=== PATIENT | male | born 1950 | race Caucasian/White ===

== ENCOUNTER 2019-10-24 09:11 | Outpatient (CLI) | payer MEDICARE, SELFPAY | END 2019-10-24 09:12 | disposition home or self-care (01) | LOC: CHSLAB 09:17 | PROVIDERS: PCP Internal Medicine; Visit Provider Specialist | DX: L72.9 Follicular cyst of the skin and subcutaneous tissue, unspecified (principal) | CPT/HCPCS: 88305 ==

== ENCOUNTER 2022-11-03 09:43 | Outpatient (CLI) | payer MEDICARE, SELFPAY | END 2022-11-03 09:44 | disposition home or self-care (01) | PROVIDERS: PCP Internal Medicine; Visit Provider Specialist | DX: L82.1 Other seborrheic keratosis (principal) | CPT/HCPCS: 88305 ==

== ENCOUNTER 2022-11-09 12:07 | Emergency (ER) | payer MEDICARE, SELFPAY ==
[2022-11-09] VITALS (10 sets, daily range): BP systolic 133–184; BP diastolic 84–99; PULSE 65–91; RESP 18–20; TEMP 36.4–37; O2SAT 95–98
--- NOTE | ~2022-11-09 | CT_ITS ---
EXAMINATION: CT soft tissue neck wo con DATE: 11/09/2022 13:45 INDICATION: Stridor. TECHNIQUE: Computed tomography (CT) of the neck was performed without intravenous contrast. Automated exposure control and iterative reconstruction technique were employed. The dose-length product was 4 62.92 mGy-cm. COMPARISON: None FINDINGS: A calcified right lung nodule is consistent with old granulomatous disease. There is a 12 x 13 mm left submandibular node. There is no radiopaque foreign body. The pharynx and larynx are unrem arkable. There is severe cervical spondylosis. IMPRESSION: 1. Mildly enlarged left submandibular lymph node, likely reactive. Reviewed, dictated and finalized at location A.
--- NOTE | ~2022-11-09 | CT_ITS ---
EXAMINATION: CT chest abdomen wo con DATE: 11/09/2022 12:45 INDICATION: Foreign body ingestion. Cough and shortness of breath. Stridor. TECHNIQUE: Computed tomography (CT) of the chest and abdomen was performed without intravenous contra st. Automated exposure control and iterative reconstruction technique were employed. The dose-length product was 687.68 mGy-cm. COMPARISON: None FINDINGS: CHEST CT: Calcified right lung nodules and calcified right hilar lymph nodes are consistent with old granulomat ous disease. There is minimal atelectasis bilaterally. No pleural effusion. The heart size is normal. No pericardial effusion. There is a small volume of food in the esophagus. There is mild thoracic s pondylosis. ABDOMEN CT: There is diffuse hepatic steatosis. There is a gallstone in the gallbladder, which is normal in size. Calcifications in the spleen are consistent with old granulomatous disease. The pancreas and adrenal glands are normal. There are cysts in the kidneys measuring up to 3.9 cm on the left. There are no d ilated loops of bowel. There is mild aortic atherosclerosis. There are no pathologically enlarged lym ph nodes. There is no free intraperitoneal fluid. There is moderate lumbar spondylosis. IMPRESSION: 1. Small volume of food in the esophagus. Reviewed, dictated and finalized at location A.
--- NOTE | ~2022-11-09 | XR_ITS ---
EXAMINATION: XR chest 1V portable INDICATION: Shortness of breath TECHNIQUE: Portable AP chest at 1213 hours COMPARISON: 08/07/2011 FINDINGS: The lungs are free of acute opacities. No pleural effusion or pneumothorax. A calcified nod ule of the right lung apex is consistent with old granulomatous disease. IMPRESSION: 1. No acute cardiopulmonary abnormality. Reviewed, dictated and finalized at location B.
--- NOTE | 2022-11-09 12:09 | ECG_ITS ---
Measurements Intervals [place] Rate: 86 P: 23 MT: 168 QRS: -3 QRSD: 92 T: 30 QT: 378 QTc: 453 Interpretive Statements SINUS RHYTHM NONSPECIFIC ST & T-WAVE ABNORMALITY ABNORMAL EKG NO PREVIOUS ECG AVAILABLE FOR COMPARISON Electronically Signed On 11-10-2022 14:26:42 CDT by Esteban Ramirez M.D.
--- NOTE | 2022-11-09 12:10 | ED.GENADULT ---
HPI - General Adult General Chief complaint: Shortness of Breath/Dyspnea Stated complaint: SOB Time Seen by Provider: 11/09/22 12:09 History of Present Illness HPI narrative: Marcin is a 71M with a PMH of GERD, laryngeal cancer s/p radiation treatment that was brought into the ED via EMS for dyspnea. He started struggling to breath about an hour ago while eating. However the thought he spit it out. Further history is difficult d/t respiratory distress. Related Data Home Medications Medication Instructions Recorded Confirmed doxazosin 4 mg tablet 4 mg PO DAILY 11/09/22 11/09/22 metoprolol succinate 100 mg 100 mg PO DAILY 11/09/22 11/09/22 tablet,extended release 24 hr olmesartan 40 mg tablet 40 mg PO DAILY 11/09/22 11/09/22 Allergies Allergy/AdvReac Type Severity Reaction Status Date / Time No Known Drug Allergies Allergy Unknown Unknown Verified 11/09/22 12:21 Bumble Bee Allergy Intermediate HIVES Uncoded 11/09/22 12:21 Review of Systems Review of Systems: All systems reviewed & are unremarkable except as noted in HPI and below Exam Const: General: ill appearing (ins severe distress ) acutely Nutritional Appearance: well nourished Orientation/consciousness: patient oriented x3 HENMT: Head: normal to inspection Ears: external ears normal Face and sinus: normal facial exam Eyes: Conjunctivae: conjunctivae normal Pupils: Equal, round and reactive pupils present Neck: Neck: normal visual inspection Chest: Chest palpation & inspection: normal inspection of the chest Resp: Effort & Inspection: labored, retractions, tachypneic and uses accessory muscles Other: Severe inspiratory strider, decreased breath sounds on the right Cardio: Rate: regular rate Rhythm: regular rhythm GI: Inspection: non-distended GI Palp: Yes Soft to palpation, No Tenderness to palpation present (GI) and No Guarding due to palpation present (GI) Skin: General skin exam: normal color Rashes: no rashes Neuro: General: patient oriented x3 and moves all extremities Cranial nerves: Yes Nystagmus not present Extrem: General: normal to inspection Psych: Mental Status: mental status grossly normal Course Course Emergency Course: Ordered CXR, EKG and labs EKG showed NSR with a rate of 86, rhythm, possible LAD but no ST elevation/depression EXAMINATION: XR chest 1V portable INDICATION: Shortness of breath TECHNIQUE: Portable AP chest at 1213 hours COMPARISON: 08/07/2011 FINDINGS: The lungs are free of acute opacities. No pleural effusion or pneumothorax. A calcified nodule of the right lung apex is consistent with old granulomatous disease. IMPRESSION: 1. No acute cardiopulmonary abnormality. EXAMINATION: CT chest abdomen wo con DATE: 11/09/2022 12:45 INDICATION: Foreign body ingestion. Cough and shortness of breath. Stridor. TECHNIQUE: Computed tomography (CT) of the chest and abdomen was performed without intravenous contrast. Automated exposure control and iterative reconstruction technique were employed. The dose-length product was 687.68 mGy-cm. COMPARISON: None FINDINGS: CHEST CT: Calcified right lung nodules and calcified right hilar lymph nodes are consistent with old granulomatous disease. There is minimal atelectasis bilaterally. No pleural effusion. The heart size is normal. No pericardial effusion.? There is a small volume of food in the esophagus. There is mild thoracic spondylosis. ABDOMEN CT: There is diffuse hepatic steatosis. There is a gallstone in the gallbladder, which is normal in size. Calcifications in the spleen are consistent with old granulomatous disease. The pancreas and adrenal glands are normal. There are cysts in the kidneys measuring up to 3.9 cm on the left. There are no dilated loops of bowel. There is mild aortic atherosclerosis. There are no pathologically enlarged lymph nodes. There is no free intraperitoneal fluid. There is moderate lumbar spondylosis. IMPRESSION: 1. Small volume of food in the esoph
[2022-11-09 12:34] LABS: Base Excess ABG 4.5 mmol/L (0-2); Basophils Absolute Auto 0.03 K/mm3 (0.00-0.10); Basophils Percent Auto 0.6 % (0.0-1.0); Device ROOM AIR; Eosinophils Absolute Auto 0.04 K/mm3 (0.02-0.50); Eosinophils Percent Auto 0.8 % (1.0-6.0); HCO3 ABG 28.5 mmol/L (23-29); Hematocrit 41.4 % (37.0-46.0); Hemoglobin 13.2 g/dL (12.4-15.3); Immature Granulocyte Absolute 0.02 K/mm3 (0.00-0.00); Immature Granulocyte Percent A 0.4 % (0.0-0.0); Lymphocytes Absolute Auto 1.06 K/mm3 (1.10-4.50); Mean Corpuscular HGB Conc 31.9 g/dL (32.0-36.0); Mean Corpuscular Hemoglobin 28.3 pg (27.0-31.0); Mean Corpuscular Volume 88.7 fL (78.0-102.0); Mean Platelet Volume 9.4 fl (8.7-11.0); Modified Allen's Test Pass; Monocytes Absolute Auto 0.44 K/mm3 (0.10-0.90); Monocytes Percent Auto 8.7 % (2.0-11.0); Neutrophils Absolute Auto 3.5 K/mm3 (1.7-7.2); Neutrophils Percent Auto 68.5 % (50.0-70.0); Oxygen Saturation ABG 96.3 % (95-97); Oxyhemoglobin 95.5 % (94-100); PCO2 ABG 40.2 mmHg (35-45); PO2 ABG 86.7 mmHg (75-85); Platelet Count Result 230 K/mm3 (150-420); Red Blood Count 4.67 M/mm3 (4.70-6.10); Red Cell Distribution Width 12.5 % (11.6-14.4); Site Drawn RIGHT RADIAL; Total Hemoglobin 14.1 g/dL (12.0-18.0); White Blood Count 5.1 K/mm3 (4.8-10.8); pH ABG 7.47 (7.35-7.45)
[2022-11-09 12:58] LABS: Alanine Aminotransferase 49 U/L (16-63); Albumin Level 3.5 g/dL (3.4-5.0); Alkaline Phosphatase 57 U/L (46-116); Anion Gap 10 mmol/L (8-16); Aspartate Amino Transferase 21 U/L (15-37); Bilirubin,Total 0.4 mg/dL (0.00-1.00); Blood Urea Nitrogen 21 mg/dL (7-18); Calcium 9.4 mg/dL (8.5-10.1); Carbon Dioxide 32 mmol/L (21-32); Chloride 103 mmol/L (98-108); Estimated CRCL calculation 57 ml/min; Estimated Glomerular Filt Rate > 60; Glucose 128 mg/dL (70-99); NT Pro B Type Natriuretic Pept 122 pg/mL (0-125); Osmolality Calculated 305 mOsm/kg (285-295); Potassium 3.2 mmol/L (3.5-5.1); Sodium 145 mmol/L (136-145); Total Protein 7.5 g/dL (6.4-8.2); Troponin I 11.9 ng/L (0.00-60.4)
[2022-11-09 13:10] LABS: Influenza A QL RT-PCR Negative (Negative); Influenza B QL RT-PCR Negative (Negative); SARS-CoV-2 RNA PCR Negative (Negative)
[2022-11-09 13:11] LABS: RSV RNA, RT-PCR Negative (Negative)
[2022-11-09] MEDS: methylPREDNISolone SOD SUCC 125 MG VIAL IV PUSH (13:35)
== END 2022-11-09 15:00 | disposition short-term general hospital (02) ==
PROVIDERS: Emergency Provider Family Medicine
DX: R06.1 Stridor (principal); R06.00 Dyspnea, unspecified; Z85.21 Personal history of malignant neoplasm of larynx; Z20.822 Contact with and (suspected) exposure to COVID-19
CPT/HCPCS: 36415; 36600; 70490; 71045; 71250; 74150; 80053; 82805; 83605; 83735; 83880; 84484; 85025; 87637; 93005; 94640; 96374; 99284; J2930

== ENCOUNTER 2022-11-09 15:32 | Emergency (ER) | payer MEDICARE, SELFPAY ==
[2022-11-09 15:32] VITALS: PULSE 70; RESP 17; TEMP 36.5; O2SAT 97
--- NOTE | 2022-11-09 15:46 | ED.SOB ---
HPI - SOB/Dyspnea General Chief Complaint: Shortness of Breath/Dyspnea Stated Complaint: dyspnea/ stridor/ ent Time Seen by Provider: 11/09/22 15:40 History of Present Illness HPI Narrative: Patient is a 71-year-old male who presents ER with concerns for stridor. Apparently patient was eating a fried sausage sandwich and began to choke and cough. Since then he has had difficulty breathing has had inspiratory stridor according to the outside ER physician. It has improved since receiving Solu-Medrol at the outside hospital. Patient is tolerating oral secretions. Reports she has felt some shortness of breath over the last week as well as some sinus congestion and cough. Patient has history of laryngeal cancer and received 28 treatments of radiation to his neck in 2000. Outside imaging showed a reactive submandibular lymph node but no other acute issue with airway. ENT physician Dr. Christina recommended patient be transferred to this hospital for further evaluation Related Data Home Medications Medication Instructions Recorded Confirmed doxazosin 4 mg tablet 4 mg PO DAILY 11/09/22 11/09/22 metoprolol succinate 100 mg 100 mg PO DAILY 11/09/22 11/09/22 tablet,extended release 24 hr olmesartan 40 mg tablet 40 mg PO DAILY 11/09/22 11/09/22 Allergies Allergy/AdvReac Type Severity Reaction Status Date / Time No Known Drug Allergies Allergy Unknown Unknown Verified 11/09/22 12:21 Bumble Bee Allergy Intermediate HIVES Uncoded 11/09/22 15:38 Review of Systems Review of Systems: All systems reviewed & are unremarkable except as noted in HPI and below Constitutional: Constitutional: Denies chills, Denies fatigue and Denies fever(s) ENT: Reports dysphagia, Denies nasal congestion and Denies sore throat Cardiovascular: Cardiovascular: Denies chest pain and Denies rapid heart rate Respiratory: Respiratory: Denies cough and Reports dyspnea Comments: stridor Gastrointestinal: Gastrointestinal: Denies abdominal pain, Denies nausea and Denies vomiting PMFSH Past Medical History Medical History (Updated 11/09/22 @ 19:37 by Hakeem Mcknight MD) Depression History of laryngeal cancer Surgical History Surgical History (Updated 11/09/22 @ 19:37 by Hakeem Mcknight MD) H/O colonoscopy History of carpal tunnel release Exam Narrative: GENERAL: Well-appearing, well-nourished, and in no acute distress. HEAD: Normocephalic, atraumatic. ENT: Mucous membranes moist. Normal-appearing posterior oropharynx. Neck: Supple, no bruit, no edema. CHEST: Clear to auscultation. No respiratory distress. HEART: Regular rate and rhythm. Normal peripheral pulses. EXTREMITIES: Normal range of motion. No edema. SKIN: Warm, dry, no rash. NEURO: Alert and oriented x3. PSYCH: Normal mood and affect. Course Course Emergency Course: ENT has been to the patient's bedside and performed a direct visual exam of the larynx and vocal cords. He reports there is some narrowing related to radiation that patient has had in the past. He is given the patient and the clinic information for [facility] so he can have a dilation performed. He recommends an oral Medrol Dosepak for home. Patient verbalized understanding of treatment plan and are comfortable. Vital Signs Vital signs: Vital Signs Temperature 97.7 F 11/09/22 15:32 Pulse Rate 70 11/09/22 15:32 Respiratory Rate 17 11/09/22 15:32 Pulse Oximetry 97 11/09/22 15:32 Oxygen Delivery Room Air 11/09/22 15:32 Temperature 97.7 F 11/09/22 15:32 Pulse Rate 70 11/09/22 15:32 Respiratory Rate 17 11/09/22 15:32 Blood Pressure 150/90 H 11/09/22 18:07 Pulse Oximetry 97 11/09/22 18:07 Oxygen Delivery Room Air 11/09/22 15:32 Discharge Plan Discharge Clinical Impression: Laryngeal stenosis Patient Disposition: Home, Self-Care Condition: Stable Additional Instructions: The ENT reports that you have narrowing of your vocal cords
--- NOTE | 2022-11-09 17:54 | WPDPROCEDUR ---
Procedures Laryngoscopy Laryngoscopy Comments: All consents obtained nasal airway anesthetized with Afrin lidocaine. Airway anesthetized with let topical lidocaine. Patient tolerated this well flexible laryngoscope passed. Nasal exam body pharynx normal larynx not normal there is no masses no lesions no ulcerations over the bilateral vocal cords are thickened and fixed in a more median position. Distal to them is normal. Patient tolerated the procedure well no obvious recurrence however there is vocal cord fixation.
--- NOTE | 2022-11-09 17:55 | WPDCN ---
Assessment and Plan Assessment and plan (1) Laryngeal stenosis: Code(s): J38.6 - Stenosis of larynx Status: Acute Assessment and Plan: scope shows vocal cord fixation in a more median position. Cords were slightly edematous thickened as well. Airway seems stable out discharge on least a Medrol Dosepak follow-up recommended Jermaine Anderson for laryngeal dilation. patient voiced understanding and agreed. He is intubatable. HPI Data of Consult Date/Time: 11/09/22 17:55 Primary Care Provider: UNKNOWN,DOCTOR Consult Narrative Narrative: Marcin Medeiros is a 71 year old male History laryngeal cancer treated with he reports 18 excuse me 28 treatments of XRT approximately 21 years ago. Presents for further evaluation treatment to the ER. Episode of eating became stridulous coughed choked. ENT consult for further evaluation treatment. Per outside hospital CT is fairly normal. Review of Systems Review of Systems: All systems reviewed & are unremarkable except as noted in HPI and below Meds Home Medications and Allergies Home Medications Medication Instructions Recorded Confirmed Type doxazosin 4 mg tablet 4 mg PO DAILY 11/09/22 11/09/22 History methylprednisolone 4 mg tablets in See Rx Instructions PO .COMPLEX 11/09/22 Rx a dose pack (Methylpred DP) #21 ea metoprolol succinate 100 mg 100 mg PO DAILY 11/09/22 11/09/22 History tablet,extended release 24 hr olmesartan 40 mg tablet 40 mg PO DAILY 11/09/22 11/09/22 History Allergies Allergy/AdvReac Type Severity Reaction Status Date / Time No Known Drug Allergies Allergy Unknown Unknown Verified 11/09/22 12:21 Bumble Bee Allergy Intermediate HIVES Uncoded 11/09/22 15:38 Vital Signs Vital Signs - 24 hr 11/09/22 15:32 Temperature 36.5 C Pulse Rate 70 Respiratory Rate 17 Pulse Oximetry 97 Oxygen Delivery Room Air Exam Narrative: Normal ENT exam see procedure note mild stridor the neil
[2022-11-09 18:07] VITALS: BP 150/90; O2SAT 97
== END 2022-11-09 18:08 | disposition home or self-care (01) ==
PROVIDERS: Emergency Provider Emergency Medicine
DX: J38.6 Stenosis of larynx (principal); F32.A Depression, unspecified; Z85.21 Personal history of malignant neoplasm of larynx
CPT/HCPCS: 31575; 99283

== ENCOUNTER 2024-07-07 08:50 | Outpatient (CLI) | payer MEDICARE, SELFPAY ==
[2024-07-07 09:21] LABS: Basophils Absolute Auto 0.02 K/mm3 (0.00-0.10); Basophils Percent Auto 0.3 % (0.0-1.0); Eosinophils Absolute Auto 0.04 K/mm3 (0.02-0.50); Eosinophils Percent Auto 0.7 % (1.0-6.0); Hematocrit 42.1 % (37.0-46.0); Hemoglobin 13.9 g/dL (12.4-15.3); Immature Granulocyte Absolute 0.05 K/mm3 (0.00-0.00); Immature Granulocyte Percent A 0.8 % (0.0-0.0); Lymphocytes Absolute Auto 1.59 K/mm3 (1.10-4.50); Lymphocytes Percent Auto 26.5 % (18.0-42.0); Mean Corpuscular Hemoglobin 28.3 pg (27.0-31.0); Mean Corpuscular Volume 85.6 fL (78.0-102.0); Mean Platelet Volume 10.4 fl (8.7-11.0); Monocytes Absolute Auto 0.43 K/mm3 (0.10-0.90); Monocytes Percent Auto 7.2 % (2.0-11.0); Neutrophils Absolute Auto 3.88 K/mm3 (1.70-7.20); Neutrophils Percent Auto 64.5 % (50.0-70.0); Platelet Count Result 158 K/mm3 (150-420); Red Blood Count 4.92 M/mm3 (4.70-6.10); Red Cell Distribution Width 12.6 % (11.6-14.4)
[2024-07-07 09:54] LABS: Alanine Aminotransferase 39 U/L (16-63); Alkaline Phosphatase 56 U/L (46-116); Anion Gap 8 mmol/L (4-12); Aspartate Amino Transferase 15 U/L (15-37); Bilirubin,Total 0.6 mg/dL (0.00-1.00); Blood Urea Nitrogen 21 mg/dL (7-18); Calcium 9.3 mg/dL (8.5-10.1); Carbon Dioxide 30 mmol/L (21-32); Chloride 103 mmol/L (98-108); Cholesterol 153 mg/dL (0-200); Estimated Glomerular Filt Rate > 60; Glucose 93 mg/dL (70-99); HDL Direct 53 mg/dL (40-60); LDL Cholesterol Calculated 76 mg/dL (<130); Osmolality Calculated 295 mOsm/kg (285-295); Potassium 4.2 mmol/L (3.5-5.1); Sodium 141 mmol/L (136-145); Total Protein 7.1 g/dL (6.4-8.2); Triglycerides 120 mg/dL (0-150)
[2024-07-07 10:05] LABS: Thyroid Stimulating Hormone Reflex 3.15 u/IU/mL (0.36-3.74)
== END 2024-07-07 08:51 | disposition home or self-care (01) ==
LOC: CHSLAB 08:52
PROVIDERS: PCP Family Medicine; Visit Provider Family Medicine
DX: E03.9 Hypothyroidism, unspecified (principal); I10 Essential (primary) hypertension
CPT/HCPCS: 36415; 80053; 80061; 84443; 85025

== ENCOUNTER 2024-07-27 13:20 | Outpatient (CLI) | payer MEDICARE, SELFPAY ==
--- NOTE | 2024-07-27 13:05 | ECHO_ITS ---
Patient Info Name: Marcin Medeiros Age: 73 years : 1950 Gender: Male Ht: 70 in Wt: 210 lbs BSA: 2.19 m2 HR: 69 bpm BP: 116 / 62 mmHg Heart Rhythm: Sinus Rhythm Technical Quality: Good Exam Date: 07/27/2024 2:15 PM Exam Location: Echo Lab Patient Status: Outpatient Admit Date: 07/27/2024 Staff Ordering Physician: Demetrius De Paz DO Patient Portal Representative: Araceli Jiménez RDCS Attending Provider: Demetrius De Paz DO Referring Physician: Baldev GRAY; Exam Type: CA echo doppler color flow Study Info Complete two-dimensional, color flow and Doppler transthoracic echocardiogram is performed. Summary 1. Complete two-dimensional, color flow and Doppler transthoracic echocardiogram is performed. 2. Left ventricular chamber dimension is normal. 3. Left ventricular systolic function is normal, estimated at 60-65%. 4. The left ventricular diastolic function is grade I diastolic dysfunction. 5. E/e' 11 is mildly elevated. 6. Left atrial chamber dimension is moderately enlarged. 7. There is mild aortic valve sclerosis. 8. There is mild aortic valve regurgitation. 9. There is trace mitral valve regurgitation. 10. There is trace pulmonic regurgitation. Left Ventricle E/e' 11 is mildly elevated. Left ventricular chamber dimension is normal. Left ventricular systolic function is normal, estimated at 60-65%. The left ventricular diastolic function is grade I diastolic dysfunction. Right Ventricle Right ventricular systolic function is normal at 3.1 cm. Right ventricular chamber dimension is normal. Left Atria Left atrial chamber dimension is moderately enlarged. Right Atria Right atrial chamber dimension is normal. Aortic Valve The aortic valve is trileaflet. There is mild aortic valve sclerosis. There is no aortic valve stenosis. There is mild aortic valve regurgitation. Pulmonic Valve There is trace pulmonic regurgitation. Mitral Valve There is no mitral valve stenosis. There is trace mitral valve regurgitation. Tricuspid Valve There is no tricuspid valve regurgitation. Pericardium/Pleural There is no pericardial effusion. Inferior Vena Cava Normal inferior vena cava with >50% collapse upon inspiration consistent with normal right atrial pressure, 5 mmHg. Aorta The aortic root size at the sinus of Valsalva is normal. Left Ventricular Outflow Tract Name Value Normal LVOT 2D LVOT Diameter 2.3 cm LVOT Doppler LVOT Peak Velocity 133 cm/s LVOT Peak Gradient 6 mmHg LVOT Mean Gradient 3 mmHg LVOT VTI 28 cm LVOT VTI/AV VTI Ratio 0.8 LVOT Stroke Volume 115 ml Pulmonic Valve Name Value Normal PV Doppler PV Peak Velocity 123 cm/s PV Peak Gradient 6 mmHg PV Regurgitation Doppler AR Peak End Diastolic Velocity 99 cm/s Mitral Valve Name Value Normal MV Doppler MV Peak Gradient 6 mmHg MV Mean Gradient 2 mmHg MV Decel Carbon 342 cm/s2 MV PHT 52 ms MV Area (PHT) 4.2 cm2 4.0-5.0 MV Area (Cont Eq VTI) 2.8 cm2 MV Diastolic Function MV E Peak Velocity 62 cm/s MV A Peak Velocity 98 cm/s MV E/A 0.6 MV Decel Time 180 ms Tricuspid Valve Name Value Normal Estimated PAP/RSVP RA Pressure 5 mmHg <=5 Aortic Valve Name Value Normal AV Doppler AV Peak Velocity 149 cm/s AV Peak Gradient 9 mmHg AV Mean Gradient 5 mmHg AV VTI 35 cm AV Area (Cont Eq VTI) 3.3 cm2 >=3.0 AV Area (Cont Eq Miki) 3.6 cm2 AV V1/V2 Ratio 0.89 AV Regurgitation 2D LVOT Area 4.1 cm2 AV Regurgitation Doppler AR Decel Time 3,431 ms AR Decel Carbon 128 cm/s2 AR PHT 995 ms Ventricles Name Value Normal LV Dimensions 2D/MM IVS Diastolic Thickness (2D) 0.8 cm 0.6-1.0 LVID Diastole (2D) 5.7 cm 4.2-5.8 LVIW Diastolic Thickness (2D) 0.8 cm 0.6-1.0 LVID Systole (2D) 3.8 cm 2.5-4.0 LVOT Diameter 2.3 cm LV Mass (2D Cubed) 174.89 g 88.00-224.00 LV Mass Index (2D Cubed) 80 g/m2 49-115 Relative Wall Thickness (2D) 0.28 LV Fractional Shortening/Ejection Fraction 2D/MM LV Fractional Shortening (2D) 33 % 25-43 LV EF (2D Teicholz) 61 % 52-72 LV Diastolic Volume (4C MOD) 166 ml LV EF (4C MOD) 68 % LV Diastolic Length (4C) 8.8 cm LV Systolic Length (4C) 7.5 cm LV Stroke Volume (4C MOD) 114 ml Atria Name Value Normal LA Dimensions LA Volume (4C A-L) 61 ml RA Dimensions RA Area (4C) 16.0 cm2 <=18.0 Report Signatures
== END 2024-07-27 13:21 | disposition home or self-care (01) ==
PROVIDERS: PCP Family Medicine; Visit Provider Family Medicine
DX: I50.9 Heart failure, unspecified (principal); I10 Essential (primary) hypertension; I35.1 Nonrheumatic aortic (valve) insufficiency; I35.8 Other nonrheumatic aortic valve disorders
CPT/HCPCS: 93306

== ENCOUNTER 2024-07-28 07:22 | Outpatient (CLI) | payer MEDICARE, SELFPAY ==
--- NOTE | ~2024-07-28 | US_ITS ---
EXAMINATION: US retroperitoneal duplex ltd DATE: 07/28/2024 08:10 ICT SUPPORT ENGINEER INDICATION: Essential hypertension TECHNIQUE: Sonographic imaging of the kidneys was performed with a 3.5 MHz transducer. Retroperitone al duplex sonogram of the renal arteries also obtained. FINDINGS: No focal flow abnormalities are seen in the renal arteries on color Doppler. The peak syst olic velocity ranges of the right and left renal arteries and aorta are 84 cm per second, 71 cm per s econd, and 83 cm per second, respectively. The velocities and renal to aortic ratios are within francisca l limits. Incidental note is made of a left renal cyst measuring 4.4 cm. IMPRESSION: 1. No Doppler evidence of renal artery stenosis. Reviewed, dictated and finalized at location B. SUPPORT ENGINEER
== END 2024-07-28 07:23 | disposition home or self-care (01) ==
LOC: CHSIMG 07:23
PROVIDERS: PCP Family Medicine; Visit Provider Family Medicine
DX: I10 Essential (primary) hypertension (principal)
CPT/HCPCS: 93976

== ENCOUNTER 2025-03-27 09:01 | Outpatient (CLI) | payer MEDICARE, SELFPAY ==
[2025-03-27 09:20] LABS: Hematocrit 39.5 % (37.0-46.0); Hemoglobin 12.7 g/dL (12.4-15.3); Immature Granulocyte Percent A 0.7 % (0.0-0.0); Lymphocytes Absolute Auto 1.26 K/mm3 (1.10-4.50); Mean Corpuscular HGB Conc 32.2 g/dL (32-36); Mean Corpuscular Hemoglobin 28.7 pg (27.0-31.0); Mean Corpuscular Volume 89.4 fL (78.0-102.0); Nucleated Red Blood Cells Absolute Auto 0.00 K/mm3 (0.00-0.00); Nucleated Red Blood Cells Perc 0.0 % (0-0.0); Platelet Count Result 169 K/mm3 (150-420); Red Blood Count 4.42 M/mm3 (4.70-6.10); White Blood Count 4.3 K/mm3 (4.8-10.8)
--- OUTSIDE RECORDS SUMMARY | 2025-03-27 09:46 | XMS_ITS | Encounter Summary ---
Author Organization [facility] Address [address] [place] [address] Phone Care Team Providers Care Database Consultant Name Role Phone Momo Moore MD Primary Care Provider [phone] MaryseaaronAmarjit DO Unavailable [phone] Gumaro Dumont MD Unavailable [phone] Reason for Visit * Reason Comments Medication Refill Encounter Details Date Type Department Care Team (Late st Contact Info) Description 11/22/2021 Refill [facility] - Primary Care - [place] [address] [place] [address] Momo Moore MD [address] [place] [address] Medication Refill Social History Tobacco Use Types Packs/Day Years Used Date Smoking Tobacco: Former Cigarettes 1 4 0 07/27/1966 - 07/27/1970 Smokeless Tobacco: Never Alcohol Use Standard Drinks/Week Comments Yes 0 (1 standard drink = 0.6 oz pur e alcohol) rarely PHQ-2 Answer Date Recorded Total Score - Questions 1-9 0 02/16 Sex and Gender Information Value Date Recorded Sex Assigned at Not on file Legal Sex Male 11:49 PM CDT Gender Identity Not on file Sexual Orientation Not on file Occupation Industry Job Start Date Job End Date retired from [employer] Not on file Not on file Not on file documented as of this encounter Miscellaneous Notes * Telephone Encounter - Viktoriya Mendoza RN - 11/24/2021 8:31 AM CDT Refill request too soon. documented in this encounter Plan of Treatment Not on file documented as of this encounter Visit Diagnoses Diagnosis Hypertension, essential Unspecified essential hypertension documented in this encounter Additional Health Concerns Assessment Noted Time PHQ-9 Depression Total Score: 0 03/05/20 8:00 AM CDT documented as of this encounter Care Teams Database Consultant Relationship Specialty Start Date End Date Momo Moore MD [address] [place] [address] PCP - General Internal Medicine 04/13/15 Amarjit Esparza DO [address] [place] [address] Consulting Physician Gastroenterology 02/26/16 03/30/24 Gumaro Dumont MD [address] [facility] [address] [place] [address] Consulting Physician Orthopaedic Surgery 03/31/24 documented as of this encounter
--- OUTSIDE RECORDS SUMMARY | 2025-03-27 09:46 | XMS_ITS | Encounter Summary ---
Author Organization [facility] Address [address] [place] [address] Phone Care Team Providers Care Furniture Detailer Name Role Phone Momo Moore MD Primary Care Provider [phone] Amarjit Esparza DO Unavailable [phone] Gumaro Dumont MD Unavailable [phone] Reason for Visit * Reason Comments Medication Refill Encounter Details Date Type Department Care Team (Late st Contact Info) Description 10/15/2023 Refill [facility] - Primary Care - [place] [address] [place] [address] Momo Moore MD [address] [place] [address] Medication Refill Social History Tobacco Use Types Packs/Day Years Used Date Smoking Tobacco: Former Cigarettes 1 4 0 07/27/1966 - 07/27/1970 Smokeless Tobacco: Never Alcohol Use Standard Drinks/Week Comments Yes 0 (1 standard drink = 0.6 oz pur e alcohol) rarely PHQ-2 Answer Date Recorded Total Score - Questions 1-9 0 02/17 Education Answer Date Recorded What is the highest level of school you have completed or the highest degree you have received? Associate degree: occupational, technical, or vocational program 03/10/2022 Sex and Gender Information Value Date Recorded Sex Assigned at Not on file Legal Sex Male 11:49 PM CDT Gender Identity Not on file Sexual Orientation Not on file Occupation Industry Job Start Date Job End Date retired from [employer] Not on file Not on file Not on file documented as of this encounter Miscellaneous Notes * Telephone Encounter - Gwendolyn Ruiz RN - 10/15/2023 8:43 AM CDT Medication(s) refilled and signed per [facility] Chronic Medication Refill Standing Order for Pediatricand Adult Patients. Requested Prescriptions Pending Prescriptions Disp Refills metoprolol Succinate (TOPROL-XL) 100 MG TABLET SR 24 HR [Pharmacy Med Name: METOPROLOL SUCC ER 100 MG TAB] 90 Tablet 1 Sig: TAKE 1 TABLET BY MOUTH EVERY DAY Beta-Blockers Protocol Passed - 10/15/2023 1:07 AM Passed - BP on record in the past year Clinician-entered: BP Readings from Last 3 Encounters: 06/29/23 132/76 05/12/23 103/81 03/29/23 110/70 Patient-entered: No data recorded Passed - Visit with relevant provider in past 12 months or upcoming 90 days Recent Visits Date Type Provider Dept 03/29/23 Office Visit Momo Moore MD [facility] Showing recent visits within past 365 days and meeting all other requirements Future Appointments No visits were found meeting these conditions. Showing future appointments within next 90 days and meeting all other requirements documented in this encounter Plan of Treatment Not on file documented as of this encounter Visit Diagnoses Diagnosis Hypertension, essential Unspecified essential hypertension documented in this encounter Additional Health Concerns Assessment Noted Time PHQ-9 Depression Total Score: 0 03/05/20 21 8:00 AM CDT documented as of this encounter Care Teams Furniture Detailer Relationship Specialty Start Date End Date Momo Moore MD [address] [place] [address] PCP - General Internal Medicine 04/13/15 Amarjit Esparza DO [address] [place] [address] Consulting Physician Gastroenterology 02/26/16 03/30/24 Gumaro Dumont MD [address] [facility] [address] [place] [address] Consulting Physician Orthopaedic Surgery 03/31/24 documented as of this encounter
--- OUTSIDE RECORDS SUMMARY | 2025-03-27 09:46 | XMS_ITS | Encounter Summary ---
Author Organization [facility] Address [address] [place] [address] Phone Care Team Providers Care Repairer Welding [employer] Equipment Name Role Phone Momo Moore MD Primary Care Provider [phone] Amarjit Esparza DO Unavailable [phone] Gumaro Dumont MD Unavailable [phone] Reason for Visit * Reason Comments Medication Refill Encounter Details Date Type Department Care Team (Late st Contact Info) Description 10/16/2023 Refill [facility] - Primary Care - [place] [address] [place] [address] Momo Moore MD [address] [place] [address] Medication Refill Social History Tobacco [...] Start Date Job End Date retired from [employer] Not on file Not on file Not on file documented as of this encounter Miscellaneous Notes * Telephone Encounter - Kristian Randall RN - 10/18/2023 2:09 PM CDT Medication(s) refilled and signed per [facility] Chronic Medication Refill Standing Order for Pediatricand Adult Patients. Requested Prescriptions Pending Prescriptions Disp Refills Olmesartan Medoxomil 40 MG Tablet [Pharmacy Med Name: OLMESARTAN MEDOXOMIL 40 MG TAB] 90 Tablet 1 Sig: TAKE 1 TABLET BY MOUTH EVERY DAY ARB Protocol Passed - 10/16/2023 7:25 AM Passed - Serum potassium on record in past 12 months POTASSIUM Date Value Ref Range Status 02/25/2023 3.7 3.5 - 5.1 mmol/L Final Passed - BP on record in the past year Clinician-entered: BP Readings from Last 3 Encounters: 06/29/23 132/76 05/12/23 103/81 03/29/23 110/70 Patient-entered: No data recorded Passed - Visit with relevant provider in past year or upcoming 90 days Recent Visits Date Type Provider Dept 03/29/23 Office Visit Momo Moore MD [facility] Showing recent visits within past 365 days and meeting all other requirements Future Appointments No visits were found meeting these conditions. Showing future appointments within next 90 days and meeting all other requirements Passed - GFR on record in past 12 months GFR, EST. NONAFRICAN Date Value Ref Range Status 02/25/2023 >60 >=60 Final documented in this encounter Plan of Treatment Not on file documented as of this encounter Visit Diagnoses Diagnosis Hypertension, essential Unspecified essential hypertension documented in this encounter Additional Health Concerns Assessment Noted Time PHQ-9 Depression Total Score: 0 03/05/20 21 8:00 AM CDT documented as of this encounter Care Teams Repairer [employer] Relationship Specialty Start Date End Date Momo Moore MD [address] [place] [address] PCP - General Internal Medicine 04/13/15 Amarjit Esparza DO [address] [place] [address] Consulting Physician Gastroenterology 02/26/16 03/30/24 Gumaro Dumont MD [address] [place] [address] Consulting Physician Orthopaedic Surgery 03/31/24 documented as of this encounter
--- OUTSIDE RECORDS SUMMARY | 2025-03-27 09:46 | XMS_ITS | Encounter Summary ---
Author Organization [facility] Address [address] [place] [address] Phone Care Team Providers Care Project Manager Interior Design Name Role Phone Momo Moore MD Primary Care Provider [phone] MaryseaaronAmarjit DO Unavailable [phone] Gumaro Dumont MD Unavailable [phone] Reason for Visit * Reason Comments Medication Refill Encounter Details Date Type Department Care Team (Late st Contact Info) Description 02/24/2021 Refill [facility] - Primary Care - [place] [address] [place] [address] Momo Moore MD [address] [place] [address] Medication Refill Social History Tobacco Use Types Packs/Day Years Used Date Smoking Tobacco: Former Cigarettes 1 4 0 07/27/1966 - 07/27/1970 Smokeless Tobacco: Never Alcohol Use Standard Drinks/Week Comments Yes 0 (1 standard drink = 0.6 oz pur e alcohol) rarely PHQ-2 Answer Date Recorded Total Score - Questions 1-9 0 12/2019 Sex and Gender Information Value Date Recorded Sex Assigned at Not on file Legal Sex Male 11:49 PM CDT Gender Identity Not on file Sexual Orientation Not on file Occupation Industry Job Start Date Job End Date retired from [employer] Not on file Not on file Not on file documented as of this encounter Plan of Treatment Not on file documented as of this encounter Visit Diagnoses Diagnosis Hypertension, essential Unspecified essential hypertension documented in this encounter Additional Health Concerns Assessment Noted Time PHQ-9 Depression Total Score: 0 09/22/19 20 1:00 PM [employer] documented as of this encounter Care Teams Project Manager Interior Design Relationship Specialty Start Date End Date Momo Moore MD [address] [place] [address] PCP - General Internal Medicine 04/13/15 Amarjit Esparza DO [address] [place] [address] Consulting Physician Gastroenterology 02/26/16 03/30/24 Gumaor Dumont MD [address] [place] [address] Consulting Physician Orthopaedic Surgery 03/31/24 documented as of this encounter
--- OUTSIDE RECORDS SUMMARY | 2025-03-27 09:46 | XMS_ITS | Clinical Summary ---
Author Organization [facility] Address [address] [address] Phone Care Team Providers Care Enterprise Project Manager Name Role Phone Momo Moore MD Primary Care Provider [phone] Gumaro Dumont MD Unavailable [phone] Allergies Active Allergy Reactions Criticality Noted Date Comments Bee Venom Unknown 09/29/2019 Carries epipen Wasp Venom Hives Medium 06/29/2023 Medications EPINEPHrine (EPIPEN) 0.3 MG/0.3ML Solution Auto-injectorI ndications:Bee sting allergy 0.3 mL by Intramuscular route once as needed for Anaphylaxis. 0.3 mL 1 2 Active sildenafil citrate (VIAGRA) 100 MG Tablet 50 mg. 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 Vocal cord paralysis 12/24/2022 Benign essential microscopic hematuria 3 Benign prostatic hyperplasia with incomplete bladder emptying 03/03/2019 Laryngopharyngeal reflux 09/01/2016 PNAR (perennial non-allergic rhinitis) 7 Hypertrophy of inferior nasal turbinate 09/01/19 17 BPPV (benign paroxysmal positional vertigo) 07/19 Noise-induced hearing loss of both ears 08/06/19 17 Tinnitus 08/06/2016 Hypertension, essential Gastroesophageal reflux disease without esophagi tis Arthritis Irritable bowel syndrome wit h both constipation and diarrhea Bee sting allergy Immunizations Immunization Administration Dates Next Due Covid-19, Mrna, Lnp-s, Pf, 3 0 Mcg/0.3 Ml Dose (Ekinops) 02/13/2021,01/23/2021 DTAP VACCINE 01/16/2014 Influenza Vaccine greater than 3 yrs 11/2019,04/21/2019,03/25/2018,2012 Influenza, High-dose, Quadrivalent 04/11/2022 Influenza, Quadrivalent, Adjuvanted 04/19/2023,1 Influenza, Seasonal, Injecta ble, Undefined 03/25/2018,03/29/2014 Influenza, high-dose, trivalent, PF 04/18,04/09/2017,03/20/2016,2014 PUR PCV-13 02/26/2016 Pneumococcal Vaccine Adult - 23 Valent 01/16/2014 Zoster Vaccine Recombinant 06/05/2020,03/23/2020 Zoster Vaccine, live 05/18/2015,03/02/2015 Family History Medical History Relation Name Comments No Known Problems Brother Cancer Father Jacinto Lymphoma Cancer Maternal Aunt Colon Cancer Maternal Aunt Cancer Maternal Uncle Cancer Mother Gi Gleoblastoma Cancer Paternal Aunt Cancer Paternal Uncle Cancer Sister Stacy Breast cancer Relation Name Status Comments Brother Alive Father Jacinto Maternal Aunt Maternal Uncle Mother Gi Paternal Aunt Paternal Uncle Sister Stacy Social History Tobacco Use Types Packs/Day Years Used Date Smoking Tobacco: Former Cigarettes 1 4 0 07/27/1966 - 07/27/1970 Smokeless Tobacco: Never Tobacco Cessation:Counseling Given: Not Answered Alcohol Use Standard Drinks/Week Comments Yes 2 (1 standard drink = 0.6 oz pur e alcohol) rarely [facility] Utilities Answer Date Recorded In the past 12 months has e electric, gas, oil, or water company threatened to shut off services in your home? No 03/29/2024 Social Connection and Isolation Panel Answer Date Recorded Frequency of Communication w ith Friends and Family Not on file 03/29/2024 Frequency of Social Gatherin gs with Friends and Family Not on file 03/29/2024 How often do you attend [employer] [facility] or scientologist services? More than 4 times per year 03/29/2024 Do you belong to any clubs o r organizations such as jehovah's witness groups, unions, fraternal or athletic groups, or school groups? Yes 03/29/2024 How often do you attend meet ings of the clubs or organizations you belong to? Patient declined 03/29/2024 Are you , , di vorced, , never , or living with a partner? 03/29/2024 AUDIT-C Answer Date Recorded Q1: How often do you have a drink containing alc ohol? Patient declined 03/29/2024 Q2: How many drinks containi ng alcohol do you have on a typical day when you are drinking? Patient declined 03/29/2024 Q3: How often do you have si x or more drinks on one occasion? Patient declined 03/29/2024 Overall Financial Resource Strain (CARDIA) Answe r Date Recorded How hard is it for you to pa y for the very basics like food, housing, medical care, and heating? Somewhat hard 03/29/2024 PHQ-2 Answer Date Recorded Total Score - Questions 1-9 0 12/17 [facility] [place] of Occupat ional Health - Occupational Stress Questionnaire Answer Date Recorded Do you feel stress - tense, restless, nervous, or anxious, or unable to sleep at night because your mind is troubled all the time - these days? To some extent 03/29/2024 Exercise Vital Sign Answer Date Recorde d On average, how many days pe r week do you engage in moderate to strenuous exercise (like a brisk walk)? 7 days 03/29/2024 On average, how many minutes do you engage in exercise at this level? 30 min 03/29/2024 PRAPARE - Transportation Answer Date Re corded In the past 12 months, has l ack of transportation kept you from medical appointments or from getting medications? No 03/19 In the past 12 months, has l ack of transportation kept you from meetings, work, or from getting things needed for daily living? No 03/29/2024 Housing Stability Vital Sign Answer Michael e Recorded In the last 12 months, was t here a time when you were not able to pay the mortgage or rent on time? Patient declined 03/29/20 24 In the past 12 months, how m any times have you moved where you were living? 0 03/29/2024 At any time in the past 12 m [facility], were you homeless or living in a [place] health care facility (including now)? No 03/29/2024 Education Answer Date Recorded What is the highest level of school you have completed or the highest degree you have received? Associate degree: occupational, technical, or vocational program 03/10/2022 Sexually Active Control Partners Comments Yes Female Sex and Gender Information Value Date Recorded Sex Assigned at Not on file Legal Sex Male 11:49 PM CDT Gender Identity Not on file Sexual Orientation Not on file Occupation Industry Job Start Date Job End Date retired from [employer] Not on file Not on file Not on file Last Filed Vital Signs Vital Sign Reading Time Taken Comments Blood Pressure 140/70 03/31/2024 8:44 AM CDT Pulse 65 03/31/2024 8:44 AM CDT Temperature 36.1 C (97 F) 03/31/2024 8:44 AM CDT Respiratory Rate 18 03/31/2024 8:44 AM CDT Oxygen Saturation 96% 03/31/2024 8:44 AM CDT Inhaled Oxygen Concentration - - Weight 96.3 kg (212 lb 3.2 oz) 03/31/2024 8:44 A M CDT Height 177.8 cm (5' 10) 03/31/2024 8:44 AM CDT Body Mass Index 30.45 03/31/2024 8:44 AM CDT Plan of Treatment Health Maintenance Due Date Last Done Comments Respiratory Syncytial Virus (RSV) Immunization (Adult) (1 - 1-dose 75+ series) 12/20/2023 Influenza Immunization (#1) 03/19/202504/18, 04/19/2023, 04/11/2022, Additional history exists SARS-COV-2 Immunization ( season) 2025 02/13/2021, 01/23/2021 Pneumococcal Immunization (50+ years) Completed 02/26/2016, 01/16/2014 Pneumococcal Immunization Combined Discontinued 02/26/2016, 01/16/2014 Immunochemical Fecal Occult Blood Discontinued 07/22/2018 Zoster Immunization Completed 06/05/2020, 03/23/2020, 05/18/2015, Additional history exists Colonoscopy Discontinued 05/12/2023, 07/19, 12/01/2011 Colorectal Cancer Screening Discontinued Hepatitis C Virus (HCV) Screening Completed 03/31/2024 Cologuard Discontinued Hepatitis B Immunization Aged Out No longer eligible based on patient's age to complete this topic Human Papillomavirus (HPV) Immunization Aged Out No longer eligible based on patient's age to complete this topic Meningococcal Immunization (ACWY) Aged Out No longer eligible based on patient's age to complete this topic Rotavirus Immunization Aged Out No lo nger eligible based on patient's age to complete this topic Procedures Procedure Name Priority Date/Time Associated Diagnosis Comments HEPATITIS C ANTIBODY Routine 03/31/2024 9:14 AM CDT Encounter for hepatitis C screening test for low risk patient STOOL, OCCULT BLOOD, DIAGNOSTIC, VIA GUAIAC STAT 07/22/2018 11:09 AM [facility] COLONOSCOPY Routine 12/01/2011 from Last 3 Months or Most Recently Relevant to Health Maintenance Results * HEPATITIS C ANTIBODY (03/31/2024 9:14 AM CDT) hepatitis C antibody 0.05 <1 S/CO 03/31/2024 9:53 PM CDT [facility] Comment: Signal/Cutoff ratio < 0.79 is Nondetected Signal/Cutoff ratio 0.80-0.99 is Grayzone Signal/Cutoff ratio > 0.99 is Detected Supplemental assays are recommended if signal/cutoff ratio is >/=1.00. Signal/cutoff ratio result >/= 5.00 is 97% predictive of positivity for recombinant immunoblot assay (RIBA) and will be reported to the [place] Department of Public [facility] as required. Blood Venipuncture / Unknown 03/31/2024 9:14 AM CDT 03/31/2024 9:14 AM CDT us Momo Moore MD CHEMISTRY ORDERABLES Thais l Result [facility] [address] [place] [address], * Stool Occult Blood - Diagnostic (07/22/2018 11:09 AM [facility]) OCCULT BLOOD DIAG Negative Negative 07/22/2018 11:48 AM [facility] Stool specimen (specimen) Non-Phlebotomy Collection / Unknown 07/22/2018 11:09 AM [facility] 07/22/2018 11:16 AM [facility] Rocio Chávez Page PAC BODY FLUIDS & STOOLS ORDERAB LES Final Result Performing Organization Address [facility] Co de Phone Number [facility] [address] [place] [address] * COLONOSCOPY (12/01/2011) Amarjit Esparza DO PROCEDURE/MINOR SURGICAL ORDERA BLES Final Result from Last 3 Months or Most Recently Relevant to Health Maintenance Insurance MEDICARE [employer] Care Teams Enterprise Project Manager Relationship Specialty Start Date End Date Momo Moore MD [address] [place] [address] PCP - General Internal Medicine 04/13/15 Gumaro Dumont MD [address] [place] [address] Consulting Physician Orthopaedic Surgery 03/31/24
[2025-03-27 10:14] LABS: Alanine Aminotransferase 59 U/L (6-50); Albumin Level 4.7 g/dL (3.5-5.1); Alkaline Phosphatase 63 U/L (38-126); Anion Gap 10 mmol/L (4-12); Aspartate Amino Transferase 40 U/L (17-59); Bilirubin,Total 0.7 mg/dL (0.2-1.3); Blood Urea Nitrogen 21 mg/dL (9-20); Calcium 9.6 mg/dL (8.4-10.2); Carbon Dioxide 26 mmol/L (22-30); Chloride 108 mmol/L (98-107); Cholesterol 190 mg/dL (0-200); Estimated Glomerular Filt Rate > 60; Glucose 104 mg/dL (65-110); HDL Direct 45 mg/dL; Osmolality Calculated 301 mOsm/kg (285-295); Potassium 4.3 mmol/L (3.4-5.0); Sodium 144 mmol/L (137-145); Total Protein 7.4 g/dL (6.3-8.2); Triglycerides 205 mg/dL (<150)
[2025-03-27 10:44] LABS: Thyroid Stimulating Hormone Reflex 2.220 uIU/mL (0.465-4.68)
== END 2025-03-27 09:02 | disposition home or self-care (01) ==
LOC: CHSLAB 09:03
PROVIDERS: PCP Family Medicine; Visit Provider Family Medicine
DX: E03.9 Hypothyroidism, unspecified (principal); I10 Essential (primary) hypertension
CPT/HCPCS: 36415; 80053; 80061; 84443; 85025